=== PATIENT | male | born 1975 | race Caucasian/White ===

== ENCOUNTER 2016-07-24 08:38 | Emergency (ER) | payer MEDICAID ==
[2016-07-24 09:10] VITALS: BP 140/92
--- NOTE | 2016-07-24 09:14 | ERNOTE ---
Date of Service: 07/24/16 Time Seen by Provider: 07/24/16 08:57 Stated Complaint: URI Presenting Symptoms:: cough Source: patient Exam Limitations: no limitations Immunizations: IMMUNIZATION HX Immunizations Up to Date Yes Allergies/Adverse Reactions: Allergies ibuprofen Adverse Reaction (Unknown, Verified 07/24/16 08:45) naproxen Adverse Reaction (Unknown, Verified 07/24/16 08:45) Home Medications: HOME MEDICATIONS Alprazolam [Xanax] 1 mg PO BID 08/29/12 [Last Taken Unknown] Atenolol [Tenormin (Atenolol)] 100 mg PO DAILY 08/29/12 [Last Taken Unknown] Lisinopril [Zestril] 40 mg PO BID 08/29/12 [Last Taken Unknown] amLODIPine BESYLATE [Norvasc] 10 mg PO DAILY 08/29/12 [Last Taken Unknown] Bupropion HCl [Wellbutrin] 300 mg PO DAILY 10/05/15 [Last Taken Unknown] Triamcinolone Acetonide [Kenalog in Orabase] 1 appl DT QID 10/19/15 [Last Taken Unknown] Albuterol Sulfate [Proair Hfa] 1 - 2 puff IH Q4H PRN #1 inhaler 07/24/16 [Last Taken Unknown] Azithromycin [Zithromax] 500 mg PO NOW #6 tab 07/24/16 [Last Taken Unknown] - History of Present Ilness Narrative: patient presents to the ED for cough, body aches, ear pain and nasal congestion. He has been sick since Thursday. 3 days of illness now. He was sent home from work last night because of his cough. Has had bronchitis before. Relates he stopped smoking 8 months ago. Stated with cough and nasal congestion. has had body aches. No CP or true SOB. Feels achy all over. Right ear pain. Nasal drainage and congestion. Daughter was sick. Mild CURRY with cough. Has not seen any one else for this. Timing: constant Severity: moderate Modifying Factors - Improves: Reports: nothing Modifying Factors - Worsens: Reports: nothing Associated Symptoms: Reports: cough, nasal congestion, nasal drainage, earache. Denies: chest pain/soreness, wheezing, sore throat Prior Treatment: Denies: recently seen Review of Systems - Review of Systems Constitutional: Absent: fever ENT: Present: See HPI Respiratory: Present: cough Cardiology: Absent: chest pain Gastrointestinal/Abdominal: Absent: abdominal pain Neurological: Absent: weakness - Patient's Past Medical History Patient History - Medical: Anxiety, Arthritis Patient History - Cardiac/Respiratory: Hypertension Patient History - Cancer: No Hx of Cancer Patient History - Surgical Procedures: No surgical history - Social History Living Situations: home Alcohol Use: none Drug Use: none - Immunizations Immunizations Up to Date: Yes Physical Exam - Physical Exam General Appearance: Present: alert, no apparent distress, other - frequent cough. No distress. Speaking in full sentences. Well hydrated, on-toxic, no distress. Eye Exam: Normal inspection: bilateral, PERRL: bilateral Ears, Nose, Throat: Present: other - No SYSTEMS PROGRAMMER, RPA or epiglottitis. Drainage down posterior pharynx. Nasal congestion. Cerumen in External canals but right TM erythema in visualized aspect. Neck: Present: normal inspection, supple Respiratory: Present: no respiratory distress, normal breath sounds, no accessory muscle use, other - frequent cough Cardiovascular/Chest: Present: regular rate, rhythm Gastrointestinal/Abdominal: Present: normal bowel sounds, nontender, soft Back Exam: Present: normal range of motion Extremity Exam: Present: normal range of motion Neurological Exam: Present: alert, normal mood/affect, no motor/sensory deficits Skin Exam: Absent: skin rash ED Progress - Vital Signs Patient's Vital Signs:: I have reviewed the patient's vital signs. Vital Signs: Vital Signs 07/24/16 08:42 Temperature 36.3 C L Pulse Rate 60 Respiratory 12 Rate Blood Pressure 140/103 O2 Sat by Pulse 96 Oximetry - Progress/Reassessment Chief Complaint: Upper Respiratory Symptoms Progress Note-Subjective: 07/24/16 09:10 I offered the patient a full w/u with labs and r-ray. he understands risks and benefits but declines this. I will treat him with ABx given clinical bronchitis and mild right OM. He is stable, non-toxic and in no distress. I discussed warning signs and reasons to returna swell as the need for close f/u. Departure - Departure Clinical Impression: Bronchitis, Cough Disposition: Home self-care Condition: Stable Instructions: Acute Bronchitis, [id number] Additional Instructions: Rest. Fluids. Work note. Follow-up with your doctor in 3 days for a re- check. Return here if you change your mind about having any of the testing we discussed, develop trouble breathing or if your condition worsens or changes in any way. Referrals: Avinash Bonilla DO [Primary Care Provider] - Prescriptions: Albuterol Sulfate [Proair Hfa] 1 - 2 puff IH Q4H PRN #1 inhaler PRN Reason: Shortness Of Breath Azithromycin [Zithromax] 500 mg PO NOW #6 tab
--- OUTSIDE RECORDS SUMMARY | 2016-07-24 09:21 | XMS REPORT | Continuity of Care Document ---
:1975 Author Organization [facility] ([facility]) Address [address] [place] [address] Phone [phone] Care Team Providers Name Role Phone Gary Boogie Primary Care Provider [phone] Source Comments This disclosure is being made pursuant to the Care Everywhere program, applicable federal and state laws, and may not contain all informaitonavailable regarding this patient.[facility] ([facility]) Active Allergies and Adverse Reactions No Known Allergies Current Medications Prescription Sig. Disp. Refills Start Date End Date Status lisinopril (PRINIVIL) 20 Take 20 mg by mouth Active mg tablet daily. atenolol (TENORMIN) 100 Take 100 mg by Active mg tablet mouth daily. AMLODIPINE BESYLATE Take by mouth. Active (AMLODIPINE PO) ALPRAZolam (XANAX) 0.5 Take 0.5 mg by Active mg tablet mouth at bedtime as needed. sulfaSALAzine Take 1 Tab by mouth 90 Tab 3 09/14/2009 Active (AZULFIDINE EN) 500 mg 3 times daily. EC tablet Indications: psoriatic arthritis meloxicam (MOBIC) 15 mg Take 1 Tab by mouth 30 Tab 5 09/14/2009 Active tablet daily. Indications: psoriatic arthritis Active Problems Problem Noted Date Psoriatic arthritis 09/14/2009 Overview: H/o of psoriasis since childhood age 7th. Uses only triamcinolone for his skin changes. Hisotyr of progressive joint pains and swelling over the last 2 years, particualrly affecting bilateral knees and ankles. AM stiffness 2-4h. Back pain worse in morning. Trevor's 14.5 cm. Branden negative. Tenderness over the left SI joint. Effusion in the right knee. Right ankle warm with mild effusion. Hypertension 09/14/2009 Overview: On Lisinopril, Amlodipin and Atenolol. Depression 09/14/2009 Overview: Was taking Effexor XR approximately 2 years ago and has stopped since then. Migraines 09/14/2009 Anxiety 09/14/2009 Social History Tobacco Use Types Packs/Day Years Used Date Current Every Day Smoker Comments:18 pack/years Alcohol Use Drinks/Week oz/Week Comments No Last Filed Vital Signs Vital Sign Reading Time Taken Blood Pressure 223/150 09/14/2009 2:13 PM CDT Pulse 103 09/14/2009 2:13 PM CDT Temperature 36.1 C (97 F) 09/14/2009 1:29 PM CDT Respiratory Rate - - Height 1.71 m (5' 7.32") 09/14/2009 1:29 PM CDT Weight 96.1 kg (211 lb 13.8 oz) 09/14/2009 1:29 PM CDT Body Mass Index 32.86 09/14/2009 1:29 PM CDT Oxygen Saturation - - Plan of Care Health Maintenance Due Date Last Done Comments Hepatitis B Vaccine (1 of 3 - Primary Series) 1975 Tdap Vaccine 1985 Lipid Disorder Screening 1992 MMR Vaccine 1992 Td Vaccine 1992 Pneumococcal Vaccine (1 of 1 - PPSV23) 1993 Influenza Vaccine: Seasonal (#1) 10/29/2015 Results from Last 3 Months Not on file
== END 2016-07-24 09:17 | disposition home or self-care (01) ==
LOC: ER 08:38
DX: J20.9 Acute bronchitis, unspecified (principal); R05 Cough